=== PATIENT | female | born 1980 | race Caucasian/White ===

== ENCOUNTER 2021-07-21 17:51 | Outpatient (CLI) | payer OTHER, SELFPAY ==
--- NOTE | ~2021-07-21 | XR_ITS ---
EXAMINATION: XR cervical spine min 6V DATE: 07/21/2021 18:08 INDICATION: Neck pain. Right-sided radiculopathy. TECHNIQUE: 6 views of cervical spine including flexion and extension views were obtained. COMPARISON: None. FINDINGS: There is mild kyphosis of cervical spine. There is 1 mm retrolisthesis of C5 on C6. There i s mildly decreased disc height at C5-C6. There is no abnormal motion with flexion or extension. At C5 -C6, there is severe bilateral uncovertebral joint osteoarthritis. There is multilevel mild facet silvino nt osteoarthritis bilaterally. There is mild central canal stenosis at C5-C6. IMPRESSION: 1. Moderate spondylosis at C5-C6 and mild spondylosis at other levels. Reviewed, dictated and finalized at location A. [employer]
== END 2021-07-21 17:52 ==
PROVIDERS: Visit Provider Nurse Practitioner Family
DX: M47.22 Other spondylosis with radiculopathy, cervical region (principal)
CPT/HCPCS: 72052

== ENCOUNTER 2023-07-08 15:12 | Outpatient (CLI) | payer OTHER, SELFPAY ==
[2023-07-08 17:04] LABS: Beta HCG Quantitative < 2.39 mIU/ML
== END 2023-07-08 15:13 | disposition home or self-care (01) ==
LOC: ANHLAB 15:13
PROVIDERS: Visit Provider Student in an Organized Health Care Education/Training Program
DX: Z30.430 Encounter for insertion of intrauterine contraceptive device (principal)
CPT/HCPCS: 36415; 84702